=== PATIENT | male | born 1950 | race Caucasian/White ===

== ENCOUNTER → 2020-04-03 | Outpatient (CLI) | payer MEDICARE | END | disposition home or self-care (01) | LOC: LAB SHORT 14:58 → LAB 14:58 | DX: D48.5 Neoplasm of uncertain behavior of skin (principal) | CPT/HCPCS: 88305 ==

== ENCOUNTER → 2020-04-30 | Outpatient (CLI) | payer MEDICARE | END | disposition home or self-care (01) | LOC: LAB 08:07 → LAB SHORT 08:07 | DX: C44.629 Squamous cell carcinoma of skin of left upper limb, including shoulder (principal) | CPT/HCPCS: 88304 ==

== ENCOUNTER → 2020-05-09 | Outpatient (CLI) | payer MEDICARE | LOC: LAB SHORT 13:25 → LAB 13:25 | DX: L08.0 Pyoderma (principal) | CPT/HCPCS: 87070; 87077; 87147; 87186; 87205 ==

== ENCOUNTER → 2020-09-25 | Outpatient (CLI) | payer MEDICARE ==
[~2020-09-25] MED LIST: ASPI81CH PO; Crestor20 MG PO; ERYT.5TO LEFTEYE; GABA100 PO; GLIP10 PO; MELO7.5 PO; METF500 PO; METO25ER PO; PARO30 PO; SUBOXONE 8 MG-1 EACH SL; TRULICITY3 MG/0.5 M SC; VALS80 PO
== END | disposition home or self-care (01) ==
LOC: LAB SHORT 13:32 → LAB 13:32
DX: C4A.61 Merkel cell carcinoma of right upper limb, including shoulder (principal)
CPT/HCPCS: 88305; 88341; 88342

== ENCOUNTER 2020-10-24 08:11 | Day surgery (SDC) | payer MEDICARE ==
[~2020-10-24] VITALS: Ht 177.8 cm; Wt 104.7 kg
--- NOTE | 2020-10-24 09:52 | NUR ---
Ambulatory in Day Surgery History, Chart, Medications and Allergies reviewed before start of procedure. Lungs clear T/O to Auscultation. Patient confirms NPO status and agrees with scheduled surgery. Pre-Op teaching done. Pt verbalizes understanding. Patient States Post-Procedure ride home has been arranged.
--- NOTE | 2020-10-24 11:03 | NUR ---
10/24/20 1103 Claudia Medellin PATIENT ARRIVED TO OR WITH A RAISED, RED AREA TO RIGHT FOREARM (OPERATIVE SIDE), NO DRAINAGE NOTED.
--- NOTE | 2020-10-24 14:03 | NUR ---
RIGHT ARM WOUND/INCISION SITE COVERED WITH WOUND VAC. SKIN ON RIGHT F.ARM IS IS TIGHT AND SWOLLEN AT BASE OF ARM NO REDNESS NOTED WOUND VAC WITH GOOD SUCTIION. CAPILLARY REFILL IN RIGHT HAND LESS THAN 3. PT ABLE TO REPOSITION SELF IN BED. PT TOLERATING PO FLUIDS AND SOLIDS. REPORT TO NICHOL MORA RN.
--- NOTE | 2020-10-24 14:24 | NUR ---
RECIEVED PATIENT AND REPORT VSS
--- NOTE | 2020-10-24 15:24 | NUR ---
Patient up to Ambulate independently. Gait steady. Discharge instructions reviewed with patient. Patient verbalizes understanding. Copy given to patient to take home. Discharged via wheelchair to private car for ride home WITH .PT BELONGING BAG WITH WOUND VAC SUPPLIES WITH PT UPON DISCHARGE.
== END 2020-10-24 15:17 | disposition home or self-care (01) ==
LOC: ORSCMMR 08:11 → NM 09:30 → ORSCMMR 09:30
PROVIDERS: Surgery
PROC: 0HBDXZX Excision of Right Lower Arm Skin, External Approach, Diagnostic (ICD-10-PCS; principal; 2020-10-24 10:30)
PROC: 07B50ZX Excision of Right Axillary Lymphatic, Open Approach, Diagnostic (ICD-10-PCS; principal; 2020-10-24 10:30)
DX: C4A.61 Merkel cell carcinoma of right upper limb, including shoulder (principal); C77.3 Secondary and unspecified malignant neoplasm of axilla and upper limb lymph nodes; I10 Essential (primary) hypertension; I25.10 Atherosclerotic heart disease of native coronary artery without angina pectoris; G47.33 Obstructive sleep apnea (adult) (pediatric); E11.9 Type 2 diabetes mellitus without complications; Z79.899 Other long term (current) drug therapy; Z79.82 Long term (current) use of aspirin
CPT/HCPCS: 38792; 82947; 88305; 88307; A9520; J0171; J0330; J0690; J1100; J1885; J2370; J2405; J2704; J3010; J7120; Q9968

== ENCOUNTER 2020-11-01 03:04 | Day surgery (SDC) | payer MEDICARE | END 2020-11-01 23:31 | disposition home or self-care (01) | LOC: WOUND 03:04 | DX: S51.801D Unspecified open wound of right forearm, subsequent encounter (principal); X58.XXXD Exposure to other specified factors, subsequent encounter | CPT/HCPCS: A9270; G0463 ==

== ENCOUNTER 2020-11-05 09:15 | Day surgery (SDC) | payer MEDICARE | END 2020-11-05 22:59 | disposition home or self-care (01) | LOC: WOUND 09:15 | DX: S51.801D Unspecified open wound of right forearm, subsequent encounter (principal); X58.XXXD Exposure to other specified factors, subsequent encounter | CPT/HCPCS: G0463 ==

== ENCOUNTER 2020-11-08 01:18 | Day surgery (SDC) | payer MEDICARE | END 2020-11-08 23:08 | disposition home or self-care (01) | LOC: WOUND 01:18 | PROC: 0HBDXZZ Excision of Right Lower Arm Skin, External Approach (ICD-10-PCS; principal; 2020-11-08) | DX: S51.801A Unspecified open wound of right forearm, initial encounter (principal); E11.52 Type 2 diabetes mellitus with diabetic peripheral angiopathy with gangrene; I96 Gangrene, not elsewhere classified; C4A.61 Merkel cell carcinoma of right upper limb, including shoulder | CPT/HCPCS: A9270 ==

== ENCOUNTER 2020-11-15 01:37 | Day surgery (SDC) | payer MEDICARE | END 2020-11-15 23:24 | disposition home or self-care (01) | LOC: WOUND 01:37 | DX: S51.801D Unspecified open wound of right forearm, subsequent encounter (principal); X58.XXXD Exposure to other specified factors, subsequent encounter; C4A.61 Merkel cell carcinoma of right upper limb, including shoulder; E11.9 Type 2 diabetes mellitus without complications | CPT/HCPCS: A9270; G0463 ==

== ENCOUNTER 2020-11-22 04:28 | Day surgery (SDC) | payer MEDICARE | END 2020-11-22 23:18 | disposition home or self-care (01) | LOC: WOUND 04:28 | DX: S51.801D Unspecified open wound of right forearm, subsequent encounter (principal); X58.XXXD Exposure to other specified factors, subsequent encounter; C4A.61 Merkel cell carcinoma of right upper limb, including shoulder; E11.9 Type 2 diabetes mellitus without complications | CPT/HCPCS: A9270; G0463 ==

== ENCOUNTER 2020-11-29 00:44 | Day surgery (SDC) | payer MEDICARE | END 2020-11-29 12:00 | disposition home or self-care (01) | LOC: WOUND 00:44 | DX: S51.801D Unspecified open wound of right forearm, subsequent encounter (principal); X58.XXXD Exposure to other specified factors, subsequent encounter; C4A.61 Merkel cell carcinoma of right upper limb, including shoulder; E11.9 Type 2 diabetes mellitus without complications | CPT/HCPCS: G0463 ==

== ENCOUNTER 2020-12-09 03:20 | Day surgery (SDC) | payer MEDICARE | END 2020-12-09 22:54 | disposition home or self-care (01) | LOC: WOUND 03:20 | DX: S51.801D Unspecified open wound of right forearm, subsequent encounter (principal); X58.XXXD Exposure to other specified factors, subsequent encounter; C4A.61 Merkel cell carcinoma of right upper limb, including shoulder; E11.9 Type 2 diabetes mellitus without complications | CPT/HCPCS: A9270; G0463 ==

== ENCOUNTER 2020-12-16 03:51 | Day surgery (SDC) | payer MEDICARE | END 2020-12-16 12:00 | disposition home or self-care (01) | LOC: WOUND 03:51 | DX: S51.801D Unspecified open wound of right forearm, subsequent encounter (principal); X58.XXXD Exposure to other specified factors, subsequent encounter; C4A.61 Merkel cell carcinoma of right upper limb, including shoulder; E11.9 Type 2 diabetes mellitus without complications | CPT/HCPCS: G0463 ==

== ENCOUNTER 2020-12-23 06:03 | Day surgery (SDC) | payer MEDICARE | END 2020-12-23 22:51 | disposition home or self-care (01) | LOC: WOUND 06:03 | DX: S51.801D Unspecified open wound of right forearm, subsequent encounter (principal); X58.XXXD Exposure to other specified factors, subsequent encounter; C4A.61 Merkel cell carcinoma of right upper limb, including shoulder; E11.9 Type 2 diabetes mellitus without complications | CPT/HCPCS: G0463 ==

== ENCOUNTER 2020-12-30 06:09 | Day surgery (SDC) | payer MEDICARE | END 2020-12-30 23:20 | disposition home or self-care (01) | LOC: WOUND 06:09 | DX: S51.801D Unspecified open wound of right forearm, subsequent encounter (principal); X58.XXXD Exposure to other specified factors, subsequent encounter; C4A.61 Merkel cell carcinoma of right upper limb, including shoulder; E11.9 Type 2 diabetes mellitus without complications | CPT/HCPCS: A9270; G0463 ==

== ENCOUNTER 2021-01-08 04:49 | Day surgery (SDC) | payer MEDICARE | END 2021-01-08 23:00 | disposition home or self-care (01) | LOC: WOUND 04:49 | DX: S51.801D Unspecified open wound of right forearm, subsequent encounter (principal); X58.XXXD Exposure to other specified factors, subsequent encounter; C4A.61 Merkel cell carcinoma of right upper limb, including shoulder; E11.9 Type 2 diabetes mellitus without complications | CPT/HCPCS: A9270; G0463 ==

== ENCOUNTER 2021-01-17 05:21 | Day surgery (SDC) | payer MEDICARE | END 2021-01-17 22:57 | disposition home or self-care (01) | LOC: WOUND 05:21 | DX: S51.801D Unspecified open wound of right forearm, subsequent encounter (principal); X58.XXXD Exposure to other specified factors, subsequent encounter; C4A.61 Merkel cell carcinoma of right upper limb, including shoulder; E11.9 Type 2 diabetes mellitus without complications | CPT/HCPCS: A9270; G0463 ==

== ENCOUNTER → 2021-01-27 | Outpatient (CLI) | payer MEDICARE | LOC: LAB 15:12 → LAB SHORT 15:12 | DX: D48.5 Neoplasm of uncertain behavior of skin (principal); L57.0 Actinic keratosis; L30.8 Other specified dermatitis | CPT/HCPCS: 88305 ==

== ENCOUNTER 2021-01-31 01:37 | Day surgery (SDC) | payer MEDICARE | END 2021-01-31 12:00 | disposition home or self-care (01) | LOC: WOUND 01:37 | DX: S51.801D Unspecified open wound of right forearm, subsequent encounter (principal); X58.XXXD Exposure to other specified factors, subsequent encounter; C4A.61 Merkel cell carcinoma of right upper limb, including shoulder; E11.9 Type 2 diabetes mellitus without complications | CPT/HCPCS: A9270; G0463 ==

== ENCOUNTER 2021-02-14 05:10 | Day surgery (SDC) | payer MEDICARE | END 2021-02-14 23:15 | disposition home or self-care (01) | LOC: WOUND 05:10 | DX: S51.801D Unspecified open wound of right forearm, subsequent encounter (principal); X58.XXXD Exposure to other specified factors, subsequent encounter; C4A.61 Merkel cell carcinoma of right upper limb, including shoulder; E11.9 Type 2 diabetes mellitus without complications | CPT/HCPCS: G0463 ==

== ENCOUNTER 2022-09-04 06:21 | Observation (INO) | payer MEDICARE ==
[2022-09-04] VITALS (13 sets, daily range): BP systolic 113–154; BP diastolic 81–99
[~2022-09-04] VITALS: Ht 177.8 cm; Wt 101.8 kg
[2022-09-04 06:48] LABS: BASOPHILS ABSOLUTE AUTO 0.05 K/mm3 (0.00-0.23); BASOPHILS PERCENT AUTO 1 % (0-2); EOSINOPHILS ABSOLUTE AUTO 0.15 K/mm3 (0.00-0.68); EOSINOPHILS PERCENT AUTO 3 % (0-6); Hematocrit 42.4 % (37.0-53.0); Hemoglobin 14.6 g/dL (13.5-17.5); IMMATURE GRAN ABSOLUTE AUTO 0.02 K/mm3 (0.00-0.10); IMMATURE GRAN PERCENT AUTO 0 % (0-1); LYMPHOCYTES ABSOLUTE AUTO 1.48 K/mm3 (0.84-5.20); LYMPHOCYTES PERCENT AUTO 26 % (21-46); MONOCYTES ABSOLUTE AUTO 0.54 K/mm3 (0.16-1.47); MONOCYTES PERCENT AUTO 9 % (4-13); Mean Corpuscular HGB 29.4 pg (26.0-34.0); Mean Corpuscular HGB Conc 34.4 g/dL (31.5-36.5); Mean Corpuscular Volume 85 fL (80-100); Mean Platelet Volume 10.4 fL (9.1-12.4); NEUTROPHILS PERCENT AUTO 61 % (41-73); Platelet Count 207 K/mm3 (150-400); RDW Coefficient Variation 13.2 % (11.7-14.2); RDW Standard Deviation 40.2 fL (35.1-46.3); Red Blood Cell Count 4.97 M/mm3 (4.30-5.90); White Blood Cell Count 5.74 K/mm3 (4.00-11.30)
[2022-09-04 07:23] LABS: Albumin, Blood 4.1 g/dL (3.4-5.0); Albumin/Globulin Ratio 1.3 (0.8-1.8); Bilirubin, Total 0.3 mg/dL (0.1-1.0); Bun/Creatinine Ratio 17.2 (12.0-20.0); Calcium, Blood 9.1 mg/dL (8.5-10.1); Creatinine, Blood 1.16 mg/dL (0.60-1.20); Globulin, Blood 3.1 g/dL (2.2-4.0); Total Protein, Blood 7.2 g/dL (6.4-8.2)
[2022-09-04 08:24] LABS: Anti-Xa UFH, PHA Monitoring <0.10 IU/mL; International Normalized Ratio 1.07; Prothrombin Time Results 11.2 Sec (9.7-11.5)
--- NOTE | 2022-09-04 12:37 | NUR ---
PT IN SYSTEM SAFETY MANAGER AT THIS TIME
--- NOTE | 2022-09-04 18:37 | NUR ---
PT WENT TO [facility] AFTER ARRIVING TO UNIT. PT WITH 1 STENT PLACED TO PROXIMAL LAD. TR BAND IS IN PROCESS OF BEING RECOVERED, PER [facility] PT WAS A 3 HOUR START FOR RECOVERING BAND. VSS. PT A/O X4. DENIES CP. DENIES SOB. GOOD CAP REFILL TO RT HAND, NO NUMBNESS OR TINGLING, NO ACTIVE BLEEDING NOTED, FULL PULSES NOTED. PT WITH HX OF MULTIPLE STENT PLACEMENT IN THE PAST X5.
--- NOTE | 2022-09-04 18:39 | NUR ---
PT EDUCATED ON NOT SMOKING IN HOSPITAL, HE AGREES NOT TO SMOKE WELL FAMILY
--- NOTE | 2022-09-04 19:27 | NUR ---
ASSUMPTION OF CARE: PATIETN IS ALERT AND ORIENTED X4 NO CONCERNS AT TIME OF ASSESSMENT. PLEASANT AND COOPERATIVE WITH CARE ENDORSES SORENESS OF CHEST THAT IS IMPROVING. BLOOD PRESSURE MILDLY ELEVATED FOR POST PCI, LUNGS CLEAR. R RADIAL WITH 3CC IN BAND. CHENCHO GET UPPER ARM BLOOD PRESSURE AND IF STILL ELEVATED SYSTOLIC INFORM CARDIOLOGY FOR FURTHER GUIDANCE, WILL CONTINUE TO MONITOR. 1L FLUIDS ALMOST FINISHED.
[2022-09-05] VITALS: BP 146/93
[2022-09-05 03:00] VITALS: BP 145/88
[2022-09-05 04:44] LABS: BASOPHILS ABSOLUTE AUTO 0.04 K/mm3 (0.00-0.23); BASOPHILS PERCENT AUTO 1 % (0-2); EOSINOPHILS ABSOLUTE AUTO 0.13 K/mm3 (0.00-0.68); EOSINOPHILS PERCENT AUTO 2 % (0-6); Hematocrit 40.1 % (37.0-53.0); Hemoglobin 13.7 g/dL (13.5-17.5); IMMATURE GRAN ABSOLUTE AUTO 0.02 K/mm3 (0.00-0.10); IMMATURE GRAN PERCENT AUTO 0 % (0-1); LYMPHOCYTES ABSOLUTE AUTO 0.91 K/mm3 (0.84-5.20); LYMPHOCYTES PERCENT AUTO 11 % (21-46); MONOCYTES ABSOLUTE AUTO 0.74 K/mm3 (0.16-1.47); MONOCYTES PERCENT AUTO 9 % (4-13); Mean Corpuscular HGB 29.3 pg (26.0-34.0); Mean Corpuscular HGB Conc 34.2 g/dL (31.5-36.5); Mean Corpuscular Volume 86 fL (80-100); Mean Platelet Volume 11.3 fL (9.1-12.4); NEUTROPHILS ABSOLUTE AUTO 6.61 K/mm3 (1.96-9.15); NEUTROPHILS PERCENT AUTO 78 % (41-73); Platelet Count 194 K/mm3 (150-400); RDW Coefficient Variation 13.2 % (11.7-14.2); RDW Standard Deviation 41.1 fL (35.1-46.3); Red Blood Cell Count 4.68 M/mm3 (4.30-5.90); White Blood Cell Count 8.45 K/mm3 (4.00-11.30)
[2022-09-05 05:10] LABS: Albumin, Blood 3.6 g/dL (3.4-5.0); Albumin/Globulin Ratio 1.2 (0.8-1.8); Bilirubin, Total 0.5 mg/dL (0.1-1.0); Bun/Creatinine Ratio 17.4 (12.0-20.0); Calcium, Blood 8.5 mg/dL (8.5-10.1); Creatinine, Blood 1.09 mg/dL (0.60-1.20); Globulin, Blood 2.9 g/dL (2.2-4.0); Potassium, Blood 3.8 mmol/L (3.5-5.5); Total Protein, Blood 6.5 g/dL (6.4-8.2)
--- NOTE | 2022-09-05 06:40 | NUR ---
END OF SHIFT: TR BAND RECOVERED WELL, NO CONCERNS TEGADERM IN PLACE. FIRE AND OXYGEN SAFETY PREFORMED AND EDCUATED, NO CONCERNS FROM THIS RN. PATIENT DENIES CHEST PAIN THROUGH THE NIGHT, SLEPT MOST THE NIGHT ON CPAP. WILL CONTINUE TO MONITOR UNTIL SHIFT CHANGE. NO CHANGE FROM ASSUMPTION OF CARE
[2022-09-05 08:00] VITALS: BP 123/70
[2022-09-05 08:08] VITALS: BP 123/70
[2022-09-05] MEDS ORDERED: CLOP75 PO (10:54)
--- NOTE | 2022-09-05 12:01 | NUR ---
PT D/C HOME. IV REMOVED, PRESSURE DRESSED. TR BAND FULLY RECOVERED, NO ACTIVE BLEEDING. PT EXPRESSED UNDERSTANDING OF DC TEACHING
== END 2022-09-05 11:40 | disposition home or self-care (01) ==
LOC: ER 06:21 → PCU 06:22
PROVIDERS: Emergency Medicine; ADMIT Internal Medicine
DX: I21.4 Non-ST elevation (NSTEMI) myocardial infarction (principal); E11.9 Type 2 diabetes mellitus without complications; I10 Essential (primary) hypertension; F32.A Depression, unspecified; F41.9 Anxiety disorder, unspecified; E78.5 Hyperlipidemia, unspecified; I25.10 Atherosclerotic heart disease of native coronary artery without angina pectoris; Z95.5 Presence of coronary angioplasty implant and graft
CPT/HCPCS: 36415; 71045; 76937; 80053; 82947; 84484; 85025; 85347; 85520; 85610; 85730; 93005; 93010; 93306; 93458; 94660; 94762; 96361; 96365; 96366; 96375; 99152; 99153; 99285-25; A9270; C1725; C1769; C1874; C1887; C1894; C9600; G0378; J1644; J2250; J2405; J3010; J3246; J7030; J7050; Q9967